=== PATIENT | female | born 1935 | race Caucasian/White ===

== ENCOUNTER 2019-07-06 13:37 | Emergency (ER) | payer MEDICARE, OTHER ==
[~2019-07-06] VITALS: Ht 149.9 cm; Wt 66.8 kg
[~2019-07-06 13:37] MED LIST: ASPI-676 PO; AZIL80TA PO; CHOL500010 PO; MECL12.574 PO; NEBI10TA2 PO; ONDA4TAB14 PO; VALS80TA2 PO
[2019-07-06 13:48] VITALS: Ht 149.9 cm; Wt 66.8 kg
[2019-07-06] MEDS ORDERED: ONDANSETRON 4 MG INJ IV STA ×2 (13:56→17:04)
[2019-07-06] MEDS ORDERED: NICARDipine HCL 30 MG CAPSULE PO ONE (14:00)
[2019-07-06] MEDS ORDERED: hydrALAzine 20 MG INJ IV ONE (15:00)
[2019-07-06 17:16] VITALS: BP 149/75; PULSE 70; RESP 15
[2019-07-06] MEDS ORDERED: ACETAMINOPHEN 325 MG TAB PO ONE (17:30)
[2019-07-06] MEDS ORDERED: MECLIZINE 12.5 MG TAB PO ONE (18:30)
== END 2019-07-06 22:58 | disposition home or self-care (01) ==
LOC: E/R 13:37
DX: I10 Essential (primary) hypertension (principal); R11.0 Nausea; R51 Headache; R40.2142 Coma scale, eyes open, spontaneous, at arrival to emergency department; R40.2362 Coma scale, best motor response, obeys commands, at arrival to emergency department; R40.2252 Coma scale, best verbal response, oriented, at arrival to emergency department; Z79.82 Long term (current) use of aspirin
CPT/HCPCS: 36415; 70450; 80048; 84484; 85025; 85610; 85730; 96374; 96375; 96376; 99285; J0360; J2405